=== PATIENT | male | born 1940 | race African-American/Black ===

== ENCOUNTER 2018-01-17 20:54 | Inpatient (IN) | payer MEDICARE ==
[~2018-01-17] VITALS: Ht 177.8 cm; Wt 71.7 kg
[2018-01-17] MEDS ORDERED: SUCCINYLCHOLINE CHLORIDE 200MG/10ML VIAL IV ONE (21:00)
[2018-01-17] MEDS ORDERED: ETOMIDATE 2MG/ML 10ML VIAL IV ONE (21:00)
[2018-01-17] MEDS ORDERED: SODIUM CHLORIDE 0.9% 1,000 ML IV ONE ×4 (21:10→22:15)
[2018-01-17 21:47] LABS: HEMATOCRIT. 37.8 % (42.0-52.0); HEMOGLOBIN. 12.5 g/dL (14.0-18.0); MEAN CORPUSCULAR HEMOGLOBIN 28.5 pg (28.0-32.0); MEAN CORPUSCULAR VOLUME 86.1 fL (80.0-94.0); MEAN PLATELET VOLUME 9.1 fl (7.4-10.4); PLATELET 238 x1000/uL (130-400); RED BLOOD CELL COUNT 4.39 mill/uL (4.7-6.1); RED CELL DISTRIBUTION WIDTH 15.1 % (11.6-14.6)
[2018-01-17 22:08] LABS: PROTHROMBIN TIME > 100.0 sec (9.4-11.6)
[2018-01-17 22:09] LABS: INR > 10.0
[2018-01-17 22:12] LABS: CHLORIDE 111 mEq/L (98-107)
[2018-01-17 22:15] LABS: PLATELET ESTIMATE NORMAL
[2018-01-17 22:29] LABS: BG BASE EXCESS -6.8 mmol/L (-2.0-2.0); BG CARBOXYHEMOGLOBIN 0.3 % (0.5-1.5); BG DEOXYHEMOGLOBIN 0.7 % (0.0-5.0); BG FRACTION INSPIRED OXYGEN 100; BG HCO3 ACT 17.5 mmol/L (22.0-26.0); BG METHEMOGLOBIN 0.4 % (0.0-1.5); BG OXYGEN SATURATION 99.3 % (92.0-98.5); BG OXYHEMOGLOBIN 98.6 % (94.0-97.0); BG PCO2 30.9 mmHg (35.0-45.0); BG PO2 507.2 mmHg (75.0-100.0); BG SAMPLE SITE LEFT RADIAL; BG TIDAL VOLUME(mL) 500 mL; BG TOTAL HEMOGLOBIN 10.8 g/dL (12.0-18.0); BG VENT MODE VENT - A/C; BG VENT RATE 12 set
[2018-01-17] MEDS ORDERED: VANCOMYCIN 1 G PREMIX 200 ML IV SCH (22:45)
[2018-01-17] MEDS ORDERED: PIPERACILLIN SODIUM/TAZOBACTAM 4.5 G in DEXT 5% WATER 100 ML IV SCH (22:45)
[2018-01-17] MEDS ORDERED: MIDAZOLAM HCL 50 MG in DEXTROSE 5% WATER 40 ML IV PRN (23:00)
[2018-01-17] MEDS ORDERED: ONDANSETRON HCL 4MG/2ML VIAL IV PRN (23:00)
[2018-01-17] MEDS ORDERED: IPRATROPIUM/ALBUTEROL 0.5-3(2.5)MG/3ML NEB INH PRN (23:00)
[2018-01-17] MEDS ORDERED: DIPHENHYDRAMINE 50MG/ML VIAL IV PRN (23:00)
[2018-01-17] MEDS ORDERED: GUAIFENESIN 200MG/10ML SUGAR FREE UDC PO PRN (23:00)
[2018-01-17] MEDS ORDERED: CLONIDINE 0.1MG TABLET PO PRN (23:00)
[2018-01-17] MEDS ORDERED: MAGNESIUM/ALUMINUM HYDROXIDE/SIMETHICONE 30ML UDC PO PRN (23:00)
[2018-01-17] MEDS ORDERED: ACETAMINOPHEN 325MG TABLET PO PRN (23:00)
[2018-01-17] MEDS ORDERED: NA PHOS,M-B/NA PHOS,DI-BA ENEMA 118ML PR PRN (23:00)
[2018-01-17] MEDS ORDERED: LORAZEPAM 2MG/ML CPJ IV PRN (23:00)
[2018-01-17] MEDS ORDERED: NOREPINEPHRINE 4 MG in DEXT 5% WATER 246 ML IV ONE ×2 (23:00→23:30)
[2018-01-17] MEDS ORDERED: PIPERACILLIN/TAZ 3.375G PREMIX 50 ML IV SCH (23:15)
[2018-01-17] MEDS ORDERED: PHYTONADIONE 5 MG in DEXTROSE 5% WATER 50 ML IV ONE (23:30)
[2018-01-18] VITALS (80 sets, daily range): BP systolic 84–116; BP diastolic 41–68
[2018-01-18 00:09] LABS: T4 FREE 1.27 ng/dL (0.76-1.46)
[2018-01-18 00:10] LABS: FOLIC ACID (FOLATE) SERUM 6.5 ng/mL (>5.38)
[2018-01-18] MEDS: DEXT 5%/0.45% NACL 1000ML 1,000 ML IV SCH ×5 (03:30→22:54)
[2018-01-18] MEDS: NOREPINEPHRINE 4 MG in DEXT 5% WATER 246 ML IV PRN ×3 (03:56→15:47)
[2018-01-18] MEDS ORDERED: PHYTONADIONE 10MG/ML AMP SUBCUT NR (04:00)
[2018-01-18] MEDS ORDERED: ALBUMIN HUMAN 25GM/500ML (5%) IV NR (04:00)
[2018-01-18] MEDS ORDERED: PHENYLEPHRINE 20 MG in DEXT 5% WATER 248 ML IV PRN (05:00)
[2018-01-18] MEDS ORDERED: PROPOFOL 10MG/ML 100ML 100 ML IV PRN (05:00)
[2018-01-18] MEDS ORDERED: PHENYLEPHRINE 20 MG in SODIUM CHLORIDE 0.9% 248 ML IV PRN (05:27)
[2018-01-18 05:38] LABS: BG BASE EXCESS -3.2 mmol/L (-2.0-2.0); BG CARBOXYHEMOGLOBIN 0.5 % (0.5-1.5); BG DEOXYHEMOGLOBIN 13.5 % (0.0-5.0); BG FRACTION INSPIRED OXYGEN 50; BG HCO3 ACT 21.8 mmol/L (22.0-26.0); BG METHEMOGLOBIN 0.2 % (0.0-1.5); BG OXYGEN SATURATION 86.4 % (92.0-98.5); BG OXYHEMOGLOBIN 85.8 % (94.0-97.0); BG PCO2 38.7 mmHg (35.0-45.0); BG PH 7.368 (7.350-7.450); BG PO2 62.3 mmHg (75.0-100.0); BG SAMPLE SITE RIGHT RADIAL; BG TIDAL VOLUME(mL) 500 mL; BG TOTAL HEMOGLOBIN 12.7 g/dL (12.0-18.0); BG VENT MODE VENT - A/C; BG VENT RATE 12 set
[2018-01-18] MEDS ORDERED: VANCOMYCIN 500 MG PREMIX 100 ML IV NR (06:00)
[2018-01-18 06:45] LABS: HEMATOCRIT. 33.2 % (42.0-52.0); HEMOGLOBIN. 10.7 g/dL (14.0-18.0); MEAN CORPUSCULAR HEMOGLOBIN 28.1 pg (28.0-32.0); MEAN CORPUSCULAR VOLUME 87.2 fL (80.0-94.0); MEAN PLATELET VOLUME 9.3 fl (7.4-10.4); PLATELET 216 x1000/uL (130-400); RED BLOOD CELL COUNT 3.81 mill/uL (4.7-6.1); RED CELL DISTRIBUTION WIDTH 15.1 % (11.6-14.6)
[2018-01-18 06:55] LABS: INR 2.9; PARTIAL THROMBOPLASTIN TIME 48.3 sec (23.4-31.0); PROTHROMBIN TIME 30.9 sec (9.4-11.6)
[2018-01-18 08:01] LABS: CREATINE KINASE MB FRACTION 22.8 ng/mL (0.5-3.6)
[2018-01-18] MEDS: IPRATROPIUM/ALBUTEROL 0.5-3(2.5)MG/3ML NEB HHN SCH ×4 (08:21→20:31)
[2018-01-18] MEDS: PANTOPRAZOLE SODIUM 40 MG/VIAL IV SCH (09:20)
[2018-01-18] MEDS: PIPERACILLIN/TAZ 2.25G PREMIX 50 ML IV SCH ×2 (09:21→17:57)
[2018-01-18] MEDS ORDERED: SODIUM CHLORIDE 0.9% 1,000 ML IV SCH (09:47)
[2018-01-18 09:50] LABS: PLATELET ESTIMATE NORMAL
[2018-01-18] MEDS ORDERED: SODIUM CHLORIDE 0.9% 1,000 ML IV ONE (10:15)
[2018-01-18] MEDS ORDERED: TRAZ-129 PO (11:52)
[2018-01-18] MEDS ORDERED: SIMV40TA5 PO (11:52)
[2018-01-18] MEDS ORDERED: CARB1TAB5 PO (11:52)
[2018-01-18] MEDS ORDERED: WARF6TAB22 PO (11:52)
[2018-01-18] MEDS ORDERED: TAMS0.4C31 PO (11:52)
[2018-01-18] MEDS ORDERED: DIATR MEGLU/DIATRIZOATE SOLN 30ML PO SCH (12:45)
[2018-01-18 13:03] LABS: AMMONIA 38 uMol/L (<32)
[2018-01-18 13:49] LABS: HEPATITIS B SURFACE ANTIGEN NEGATIVE
[2018-01-18 14:17] LABS: HEPATITIS B CORE AB IGM NEGATIVE
[2018-01-18 14:19] LABS: HEPATITIS A AB IGM NEGATIVE (NEGATIVE)
[2018-01-18 16:00] LABS: CREATINE KINASE MB FRACTION 12.7 ng/mL (0.5-3.6)
[2018-01-18] MEDS ORDERED: NA PHOS,M-B/NA PHOS,DI-BA ENEMA 118ML PR ONE (21:30)
[2018-01-19] VITALS (44 sets, daily range): BP systolic 93–143; BP diastolic 43–72
[2018-01-19] MEDS: IPRATROPIUM/ALBUTEROL 0.5-3(2.5)MG/3ML NEB HHN SCH ×6 (00:22→20:26)
[2018-01-19] MEDS: NOREPINEPHRINE 4 MG in DEXT 5% WATER 246 ML IV PRN (01:32)
[2018-01-19] MEDS: PIPERACILLIN/TAZ 2.25G PREMIX 50 ML IV SCH ×2 (01:57→09:40)
[2018-01-19 06:34] LABS: CHLORIDE 112 mEq/L (98-107)
[2018-01-19 06:36] LABS: HEMATOCRIT. 31.3 % (42.0-52.0); HEMOGLOBIN. 10.6 g/dL (14.0-18.0); MEAN PLATELET VOLUME 9.4 fl (7.4-10.4); PLATELET 196 x1000/uL (130-400); RED BLOOD CELL COUNT 3.64 mill/uL (4.7-6.1); RED CELL DISTRIBUTION WIDTH 14.9 % (11.6-14.6)
[2018-01-19] MEDS: DEXT 5%/0.45% NACL 1000ML 1,000 ML IV SCH ×2 (08:17→19:00)
[2018-01-19] MEDS: PANTOPRAZOLE SODIUM 40 MG/VIAL IV SCH (08:17)
[2018-01-19] MEDS: DOCUSATE SODIUM 100MG CAPSULE PO PRN (08:17)
[2018-01-19 08:18] LABS: BG BASE EXCESS 1.5 mmol/L (-2.0-2.0); BG CARBOXYHEMOGLOBIN 0.3 % (0.5-1.5); BG DEOXYHEMOGLOBIN 0.6 % (0.0-5.0); BG FRACTION INSPIRED OXYGEN 60; BG HCO3 ACT 25.1 mmol/L (22.0-26.0); BG METHEMOGLOBIN 0.1 % (0.0-1.5); BG OXYGEN SATURATION 99.4 % (92.0-98.5); BG PCO2 35.5 mmHg (35.0-45.0); BG PH 7.467 (7.350-7.450); BG PO2 238.6 mmHg (75.0-100.0); BG SAMPLE SITE RIGHT RADIAL; BG TIDAL VOLUME(mL) 550 mL; BG TOTAL HEMOGLOBIN 10.3 g/dL (12.0-18.0); BG VENT MODE VENT - A/C; BG VENT RATE 12 set
[2018-01-19] MEDS ORDERED: POTASSIUM CHLORIDE 20MEQ/PACKET PO SCH (08:45)
[2018-01-19] MEDS: LACTULOSE 20G/30ML UDC PO SCH ×3 (09:40→22:32)
[2018-01-19] MEDS ORDERED: POTASSIUM CHLORIDE INJ 40 MEQ in DEXT 5% WATER 250 ML IV SCH (10:00)
[2018-01-19] MEDS: METOCLOPRAMIDE HCL 10MG/2ML VIAL IV SCH ×3 (12:00→23:29)
[2018-01-19] MEDS: CARBIDOPA/LEVODOPA 25/100MG TABLET PO SCH ×2 (13:03→16:39)
[2018-01-19] MEDS: ENOXAPARIN 60MG/0.6ML SYR SUBCUT SCH ×2 (13:03→22:33)
[2018-01-19] MEDS ORDERED: VANCOMYCIN 1250MG in DEXTROSE 5% WATER 250ML IV SCH (14:00)
[2018-01-19 14:14] LABS: PLATELET ESTIMATE NORMAL
[2018-01-19] MEDS: PIPERACILLIN/TAZ 3.375G PREMIX 50 ML IV SCH ×2 (16:40→22:32)
[2018-01-19 19:04] LABS: T4 FREE 0.99 ng/dL (0.76-1.46)
[2018-01-19 20:38] LABS: AMMONIA 41 uMol/L (<32)
[2018-01-20] VITALS (25 sets, daily range): BP systolic 90–130; BP diastolic 46–71
[2018-01-20] MEDS: IPRATROPIUM/ALBUTEROL 0.5-3(2.5)MG/3ML NEB HHN SCH ×7 (00:03→23:47)
[2018-01-20] MEDS: PIPERACILLIN/TAZ 3.375G PREMIX 50 ML IV SCH ×4 (04:22→21:15)
[2018-01-20] MEDS: VANCOMYCIN 1250MG in DEXTROSE 5% WATER 250ML IV SCH ×2 (05:07→23:06)
[2018-01-20] MEDS: METOCLOPRAMIDE HCL 10MG/2ML VIAL IV SCH ×4 (05:09→23:06)
[2018-01-20] MEDS: LACTULOSE 20G/30ML UDC PO SCH ×3 (05:09→21:14)
[2018-01-20 05:52] LABS: HEMATOCRIT. 30.9 % (42.0-52.0); HEMOGLOBIN. 10.4 g/dL (14.0-18.0); MEAN PLATELET VOLUME 9.4 fl (7.4-10.4); PLATELET 159 x1000/uL (130-400); RED CELL DISTRIBUTION WIDTH 14.9 % (11.6-14.6)
[2018-01-20 05:59] LABS: INR 1.5; PROTHROMBIN TIME 15.9 sec (9.4-11.6)
[2018-01-20] MEDS: DEXT 5%/0.45% NACL 1000ML 1,000 ML IV SCH ×3 (06:00→23:07)
[2018-01-20 06:15] LABS: CHLORIDE 113 mEq/L (98-107)
[2018-01-20 07:24] LABS: CLARITY URINE CLEAR (CLEAR); COLOR URINE YELLOW (YELLOW); KETONES URINE NEGATIVE (NEGATIVE); LEUKOCYTE ESTERASE URINE 2+ (NEGATIVE); NITRITE URINE NEGATIVE (NEGATIVE); OCCULT BLOOD URINE 3+ (NEGATIVE); PH URINE 5.5 (4.5-8.0); PROTEIN URINE TRACE (NEGATIVE)
[2018-01-20 08:32] LABS: PHOSPHORUS 1.8 mg/dL (2.5-4.9)
[2018-01-20] MEDS: PANTOPRAZOLE SODIUM 40 MG/VIAL IV SCH (08:42)
[2018-01-20] MEDS: CARBIDOPA/LEVODOPA 25/100MG TABLET PO SCH ×3 (08:42→17:00)
[2018-01-20] MEDS ORDERED: POTASSIUM PHOS,M-BASIC-D-BASIC 15 MMOL in DEXT 5% WATER 245 ML IV SCH (11:00)
[2018-01-20 11:27] LABS: PLATELET ESTIMATE NORMAL
[2018-01-20] MEDS: ENOXAPARIN 60MG/0.6ML SYR SUBCUT SCH ×2 (11:55→23:06)
[2018-01-20 12:10] LABS: BG CARBOXYHEMOGLOBIN 0.3 % (0.5-1.5); BG DEOXYHEMOGLOBIN 0.8 % (0.0-5.0); BG FRACTION INSPIRED OXYGEN 50; BG HCO3 ACT 26.1 mmol/L (22.0-26.0); BG METHEMOGLOBIN 0.2 % (0.0-1.5); BG OXYGEN SATURATION 99.2 % (92.0-98.5); BG OXYHEMOGLOBIN 98.7 % (94.0-97.0); BG PCO2 34.7 mmHg (35.0-45.0); BG PH 7.495 (7.350-7.450); BG PO2 283.1 mmHg (75.0-100.0); BG PRESSURE SUPPORT 8; BG SAMPLE SITE RIGHT RADIAL; BG VENT MODE VENT - CPAP
[2018-01-20] MEDS ORDERED: WARFARIN SODIUM 2.5MG TABLET PO NR (18:00)
[2018-01-21] VITALS (24 sets, daily range): BP systolic 103–126; BP diastolic 52–64
[2018-01-21] MEDS: IPRATROPIUM/ALBUTEROL 0.5-3(2.5)MG/3ML NEB HHN SCH ×5 (03:21→21:10)
[2018-01-21] MEDS: PIPERACILLIN/TAZ 3.375G PREMIX 50 ML IV SCH ×4 (04:24→21:37)
[2018-01-21] MEDS: LACTULOSE 20G/30ML UDC PO SCH ×3 (05:29→21:34)
[2018-01-21] MEDS: METOCLOPRAMIDE HCL 10MG/2ML VIAL IV SCH ×4 (05:29→23:48)
[2018-01-21 06:19] LABS: HEMATOCRIT. 30.7 % (42.0-52.0); HEMOGLOBIN. 10.3 g/dL (14.0-18.0); MEAN CORPUSCULAR HEMOGLOBIN 28.6 pg (28.0-32.0); MEAN CORPUSCULAR VOLUME 85.5 fL (80.0-94.0); MEAN PLATELET VOLUME 9.3 fl (7.4-10.4); PLATELET 153 x1000/uL (130-400); RED BLOOD CELL COUNT 3.59 mill/uL (4.7-6.1); RED CELL DISTRIBUTION WIDTH 14.9 % (11.6-14.6)
[2018-01-21 06:21] LABS: CHLORIDE 112 mEq/L (98-107)
[2018-01-21 06:37] LABS: AMMONIA 52 uMol/L (<32); PHOSPHORUS 1.4 mg/dL (2.5-4.9)
[2018-01-21] MEDS: CARBIDOPA/LEVODOPA 25/100MG TABLET PO SCH ×4 (09:24→21:36)
[2018-01-21] MEDS: PANTOPRAZOLE SODIUM 40 MG/VIAL IV SCH (09:24)
[2018-01-21] MEDS: DEXT 5%/0.45% NACL KCL 20MEQ/L 1,000 ML IV SCH ×2 (09:58→16:53)
[2018-01-21] MEDS ORDERED: POTASSIUM PHOS,M-BASIC-D-BASIC 20 MMOL in DEXT 5% WATER 243.3333 ML IV SCH (10:00)
[2018-01-21 10:02] LABS: INR 1.5; PROTHROMBIN TIME 16.2 sec (9.4-11.6)
[2018-01-21] MEDS: CYANOCOBALAMIN 1000MCG TABLET PO SCH (10:46)
[2018-01-21] MEDS: ENOXAPARIN 60MG/0.6ML SYR SUBCUT SCH ×2 (11:40→23:48)
[2018-01-21] MEDS ORDERED: WARFARIN SODIUM 2.5MG TABLET PO SCH (11:45)
[2018-01-21] MEDS: VANCOMYCIN 1 G PREMIX 200 ML IV SCH ×2 (12:54→21:37)
[2018-01-21 13:10] LABS: PLATELET ESTIMATE NORMAL
[2018-01-21] MEDS: ACETYLCYSTEINE 100MG/ML 10% VIAL 4ML INH SCH (17:32)
[2018-01-21] MEDS: METOPROLOL TARTRATE 25MG TABLET PO SCH (21:36)
[2018-01-22] VITALS (29 sets, daily range): BP systolic 103–138; BP diastolic 51–67
[2018-01-22] MEDS: ACETYLCYSTEINE 100MG/ML 10% VIAL 4ML INH SCH ×3 (00:46→16:00)
[2018-01-22] MEDS: IPRATROPIUM/ALBUTEROL 0.5-3(2.5)MG/3ML NEB HHN SCH ×6 (00:47→19:48)
[2018-01-22] MEDS: PIPERACILLIN/TAZ 3.375G PREMIX 50 ML IV SCH ×4 (05:37→21:19)
[2018-01-22] MEDS: LACTULOSE 20G/30ML UDC PO SCH ×3 (05:37→21:19)
[2018-01-22] MEDS: DEXT 5%/0.45% NACL KCL 20MEQ/L 1,000 ML IV SCH ×4 (05:37→21:18)
[2018-01-22] MEDS: METOCLOPRAMIDE HCL 10MG/2ML VIAL IV SCH ×3 (05:37→17:08)
[2018-01-22 05:42] LABS: INR 1.7; PROTHROMBIN TIME 17.3 sec (9.4-11.6)
[2018-01-22 08:21] LABS: HEMATOCRIT 31.8 % (42.0-52.0); HEMOGLOBIN 10.3 g/dL (14.0-18.0); MEAN CORPUSCULAR HEMOGLOBIN 28.5 pg (28.0-32.0); MEAN CORPUSCULAR VOLUME 88.1 fL (80.0-94.0); PLATELET 153 x1000/uL (130-400); RED BLOOD CELL COUNT 3.61 mill/uL (4.7-6.1); RED CELL DISTRIBUTION WIDTH 15.3 % (11.6-14.6)
[2018-01-22] MEDS: VANCOMYCIN 1 G PREMIX 200 ML IV SCH (08:30)
[2018-01-22] MEDS: CYANOCOBALAMIN 1000MCG TABLET PO SCH (08:30)
[2018-01-22] MEDS: PANTOPRAZOLE SODIUM 40 MG/VIAL IV SCH (08:30)
[2018-01-22] MEDS: CARBIDOPA/LEVODOPA 25/100MG TABLET PO SCH ×4 (08:31→21:19)
[2018-01-22] MEDS: METOPROLOL TARTRATE 25MG TABLET PO SCH ×2 (08:33→21:18)
[2018-01-22 09:32] LABS: CHLORIDE 110 mEq/L (98-107)
[2018-01-22 09:38] LABS: PHOSPHORUS 1.4 mg/dL (2.5-4.9)
[2018-01-22 10:56] LABS: AMMONIA 36 uMol/L (<32)
[2018-01-22] MEDS: ENOXAPARIN 60MG/0.6ML SYR SUBCUT SCH (11:11)
[2018-01-22] MEDS ORDERED: POTASSIUM PHOS,M-BASIC-D-BASIC 30 MMOL in SODIUM CHLORIDE 0.9% 500 ML IV NR (13:00)
[2018-01-22] MEDS ORDERED: WARFARIN SODIUM 2.5MG TABLET PO SCH (18:00)
[2018-01-23] VITALS (29 sets, daily range): BP systolic 101–139; BP diastolic 48–72
[2018-01-23] MEDS: ENOXAPARIN 60MG/0.6ML SYR SUBCUT SCH ×3 (00:27→23:15)
[2018-01-23] MEDS: METOCLOPRAMIDE HCL 10MG/2ML VIAL IV SCH ×4 (00:27→18:45)
[2018-01-23] MEDS: DEXT 5%/0.45% NACL KCL 20MEQ/L 1,000 ML IV SCH ×2 (00:29→09:28)
[2018-01-23] MEDS: IPRATROPIUM/ALBUTEROL 0.5-3(2.5)MG/3ML NEB HHN SCH ×5 (05:11→20:04)
[2018-01-23] MEDS: LACTULOSE 20G/30ML UDC PO SCH (05:27)
[2018-01-23] MEDS: PIPERACILLIN/TAZ 3.375G PREMIX 50 ML IV SCH ×4 (05:28→22:00)
[2018-01-23 06:03] LABS: BASOPHILS % 0.3 % (0.0-2.0); EOSINOPHILS % 2.6 % (0.0-5.0); HEMOGLOBIN. 9.7 g/dL (14.0-18.0); LYMPHOCYTES % 10.1 % (20.0-50.0); MEAN CORPUSCULAR HEMOGLOBIN 28.9 pg (28.0-32.0); MEAN CORPUSCULAR VOLUME 86.1 fL (80.0-94.0); MEAN PLATELET VOLUME 9.6 fl (7.4-10.4); MONOCYTES % 4.6 % (2.0-8.0); NEUTROPHILS % 82.4 % (40.0-76.0); PLATELET 189 x1000/uL (130-400); RED BLOOD CELL COUNT 3.37 mill/uL (4.7-6.1); RED CELL DISTRIBUTION WIDTH 14.8 % (11.6-14.6)
[2018-01-23 06:07] LABS: INR 1.7; PARTIAL THROMBOPLASTIN TIME 40.4 sec (23.4-31.0); PROTHROMBIN TIME 17.4 sec (9.4-11.6)
[2018-01-23 06:29] LABS: CHLORIDE 110 mEq/L (98-107)
[2018-01-23 06:37] LABS: AMMONIA 32 uMol/L (<32)
[2018-01-23 06:52] LABS: PREALBUMIN 5.2 mg/dL (20.0-40.0)
[2018-01-23] MEDS: CYANOCOBALAMIN 1000MCG TABLET PO SCH (08:33)
[2018-01-23] MEDS: PANTOPRAZOLE SODIUM 40 MG/VIAL IV SCH (08:33)
[2018-01-23] MEDS: CARBIDOPA/LEVODOPA 25/100MG TABLET PO SCH ×4 (08:33→22:01)
[2018-01-23] MEDS: METOPROLOL TARTRATE 25MG TABLET PO SCH ×2 (08:33→22:01)
[2018-01-23] MEDS: ACETYLCYSTEINE 100MG/ML 10% VIAL 4ML INH SCH ×2 (09:05→16:54)
[2018-01-23] MEDS ORDERED: PHYTONADIONE 5 MG/5ML ORAL SYRINGE PO NR (12:00)
[2018-01-23 12:28] LABS: PHOSPHORUS 1.3 mg/dL (2.5-4.9)
[2018-01-23] MEDS ORDERED: POTASSIUM PHOS,M-BASIC-D-BASIC 15 MMOL in DEXT 5% WATER 245 ML IV NR (16:00)
[2018-01-23] MEDS: NYSTATIN POWDER 15GM TOP SCH (22:02)
[2018-01-24] VITALS: BP 105/75
[2018-01-24] MEDS: ACETYLCYSTEINE 100MG/ML 10% VIAL 4ML INH SCH ×4 (00:05→23:31)
[2018-01-24] MEDS: IPRATROPIUM/ALBUTEROL 0.5-3(2.5)MG/3ML NEB HHN SCH ×7 (00:05→23:32)
[2018-01-24] MEDS: METOCLOPRAMIDE HCL 10MG/2ML VIAL IV SCH ×5 (02:11→23:17)
[2018-01-24 04:00] VITALS: BP 106/38
[2018-01-24] MEDS: PIPERACILLIN/TAZ 3.375G PREMIX 50 ML IV SCH ×4 (04:44→22:14)
[2018-01-24 07:16] LABS: INR 1.2; PARTIAL THROMBOPLASTIN TIME 30.4 sec (23.4-31.0); PROTHROMBIN TIME 12.5 sec (9.4-11.6)
[2018-01-24 08:00] VITALS: BP 101/45
[2018-01-24] MEDS: METOPROLOL TARTRATE 25MG TABLET PO SCH ×2 (08:12→21:55)
[2018-01-24 08:24] LABS: AMMONIA 65 uMol/L (<32)
[2018-01-24] MEDS: NYSTATIN POWDER 15GM TOP SCH ×2 (08:31→22:13)
[2018-01-24] MEDS: CARBIDOPA/LEVODOPA 25/100MG TABLET PO SCH ×4 (08:31→21:56)
[2018-01-24] MEDS: CYANOCOBALAMIN 1000MCG TABLET PO SCH (08:31)
[2018-01-24] MEDS: LACTULOSE 20G/30ML UDC PO SCH (08:31)
[2018-01-24] MEDS: PANTOPRAZOLE SODIUM 40 MG/VIAL IV SCH (08:31)
[2018-01-24] MEDS: ENOXAPARIN 60MG/0.6ML SYR SUBCUT SCH (11:22)
[2018-01-24 12:00] VITALS: BP 105/48
[2018-01-24 16:00] VITALS: BP 108/46
[2018-01-24 20:00] VITALS: BP 115/47
[2018-01-25] VITALS: BP 102/34
[2018-01-25] MEDS: IPRATROPIUM/ALBUTEROL 0.5-3(2.5)MG/3ML NEB HHN SCH ×5 (03:37→20:18)
[2018-01-25 04:00] VITALS: BP 103/35
[2018-01-25] MEDS: METOCLOPRAMIDE HCL 10MG/2ML VIAL IV SCH ×3 (05:28→17:10)
[2018-01-25 06:50] LABS: INR 1.1; PARTIAL THROMBOPLASTIN TIME 28.6 sec (23.4-31.0); PROTHROMBIN TIME 11.8 sec (9.4-11.6)
[2018-01-25] MEDS: CYANOCOBALAMIN 1000MCG TABLET PO SCH (07:37)
[2018-01-25 08:00] VITALS: BP 103/46
[2018-01-25] MEDS: METOPROLOL TARTRATE 25MG TABLET PO SCH ×2 (08:02→20:53)
[2018-01-25] MEDS: LACTULOSE 20G/30ML UDC PO SCH (08:02)
[2018-01-25] MEDS: CARBIDOPA/LEVODOPA 25/100MG TABLET PO SCH ×4 (08:02→20:52)
[2018-01-25] MEDS: NYSTATIN POWDER 15GM TOP SCH ×2 (08:24→20:53)
[2018-01-25] MEDS: PANTOPRAZOLE SODIUM 40 MG/VIAL IV SCH (08:37)
[2018-01-25] MEDS: ACETYLCYSTEINE 100MG/ML 10% VIAL 4ML INH SCH ×2 (08:44→16:27)
[2018-01-25] MEDS ORDERED: CEFAZOLIN 1000MG PREMIX 50 ML IV NR (10:00)
[2018-01-25 11:15] VITALS: BP 106/39
[2018-01-25] MEDS ORDERED: FENTANYL CITRATE/PF 50MCG/ML 2ML VIAL ONE (11:25)
[2018-01-25] MEDS ORDERED: MIDAZOLAM HCL 5 MG/5 ML VIAL ONE (11:26)
[2018-01-25] MEDS ORDERED: SODIUM CHLORIDE 0.9% 10ML VIAL ONE (14:24)
[2018-01-25] MEDS ORDERED: SIMETHICONE 40 MG/0.6 ML 30ML ONE (14:24)
[2018-01-25 16:00] VITALS: BP 120/53
[2018-01-25] MEDS: CEFTRIAXONE 1 G PREMIX 50 ML IV SCH (17:57)
[2018-01-25 20:00] VITALS: BP 105/45
[2018-01-25] MEDS: METRONIDAZOLE 500 MG PREMIX 100 ML IV SCH (20:53)
[2018-01-26] VITALS: BP 111/51
[2018-01-26] MEDS: ACETYLCYSTEINE 100MG/ML 10% VIAL 4ML INH SCH ×3 (00:26→19:45)
[2018-01-26] MEDS: IPRATROPIUM/ALBUTEROL 0.5-3(2.5)MG/3ML NEB HHN SCH ×6 (00:26→19:45)
[2018-01-26] MEDS: METOCLOPRAMIDE HCL 10MG/2ML VIAL IV SCH ×5 (02:19→23:43)
[2018-01-26 04:00] VITALS: BP_SYST 107; BP_SYST 111; BP_DIAS 51; BP_DIAS 56
[2018-01-26 08:00] VITALS: BP 141/45
[2018-01-26] MEDS: CARBIDOPA/LEVODOPA 25/100MG TABLET PO SCH ×4 (08:27→21:36)
[2018-01-26] MEDS: CYANOCOBALAMIN 1000MCG TABLET PO SCH (08:27)
[2018-01-26] MEDS: PANTOPRAZOLE SODIUM 40 MG/VIAL IV SCH (08:28)
[2018-01-26] MEDS: METOPROLOL TARTRATE 25MG TABLET PO SCH ×2 (08:29→21:00)
[2018-01-26] MEDS: LACTULOSE 20G/30ML UDC PO SCH (08:29)
[2018-01-26] MEDS: NYSTATIN POWDER 15GM TOP SCH ×2 (08:29→21:49)
[2018-01-26] MEDS: METRONIDAZOLE 500 MG PREMIX 100 ML IV SCH ×2 (08:30→21:36)
[2018-01-26 12:00] VITALS: BP 110/36
[2018-01-26] MEDS: ENOXAPARIN 60MG/0.6ML SYR SUBCUT SCH ×2 (12:12→21:59)
[2018-01-26 16:00] VITALS: BP 99/41
[2018-01-26] MEDS: WARFARIN SODIUM 5MG TABLET PO SCH (17:46)
[2018-01-26] MEDS: CEFTRIAXONE 1 G PREMIX 50 ML IV SCH (17:47)
[2018-01-26 20:00] VITALS: BP 101/39
[2018-01-27] VITALS: BP 96/39
[2018-01-27] MEDS: IPRATROPIUM/ALBUTEROL 0.5-3(2.5)MG/3ML NEB HHN SCH ×6 (01:14→21:06)
[2018-01-27 04:00] VITALS: BP 95/41
[2018-01-27] MEDS: ACETYLCYSTEINE 100MG/ML 10% VIAL 4ML INH SCH ×2 (04:04→07:40)
[2018-01-27] MEDS: METOCLOPRAMIDE HCL 10MG/2ML VIAL IV SCH ×3 (05:33→17:18)
[2018-01-27 06:05] LABS: INR 1.2; PROTHROMBIN TIME 12.3 sec (9.4-11.6)
[2018-01-27 08:00] VITALS: BP 103/43
[2018-01-27] MEDS: METOPROLOL TARTRATE 25MG TABLET PO SCH ×2 (09:00→20:57)
[2018-01-27] MEDS: ENOXAPARIN 60MG/0.6ML SYR SUBCUT SCH ×2 (09:51→20:40)
[2018-01-27] MEDS: PANTOPRAZOLE SODIUM 40 MG/VIAL IV SCH (09:51)
[2018-01-27] MEDS: METRONIDAZOLE 500 MG PREMIX 100 ML IV SCH ×2 (09:52→20:38)
[2018-01-27] MEDS: CARBIDOPA/LEVODOPA 25/100MG TABLET PO SCH ×4 (09:52→20:39)
[2018-01-27] MEDS: CYANOCOBALAMIN 1000MCG TABLET PO SCH (09:52)
[2018-01-27] MEDS: LACTULOSE 20G/30ML UDC PO SCH (09:52)
[2018-01-27] MEDS: NYSTATIN POWDER 15GM TOP SCH ×2 (09:53→20:39)
[2018-01-27 12:00] VITALS: BP 119/61
[2018-01-27 16:00] VITALS: BP 104/50
[2018-01-27] MEDS: WARFARIN SODIUM 5MG TABLET PO SCH (17:18)
[2018-01-27] MEDS: CEFTRIAXONE 1 G PREMIX 50 ML IV SCH (17:18)
[2018-01-27 20:00] VITALS: BP 107/42
[2018-01-28] VITALS (7 sets, daily range): BP systolic 95–118; BP diastolic 43–51
[2018-01-28] MEDS: IPRATROPIUM/ALBUTEROL 0.5-3(2.5)MG/3ML NEB HHN SCH ×6 (00:50→20:31)
[2018-01-28] MEDS: METOCLOPRAMIDE HCL 10MG/2ML VIAL IV SCH ×4 (01:04→18:41)
[2018-01-28 07:33] LABS: INR 1.2; PROTHROMBIN TIME 12.3 sec (9.4-11.6)
[2018-01-28] MEDS: METOPROLOL TARTRATE 25MG TABLET PO SCH ×2 (09:00→20:05)
[2018-01-28] MEDS: LACTULOSE 20G/30ML UDC PO SCH (09:49)
[2018-01-28] MEDS: CARBIDOPA/LEVODOPA 25/100MG TABLET PO SCH ×4 (09:49→20:07)
[2018-01-28] MEDS: CYANOCOBALAMIN 1000MCG TABLET PO SCH (09:49)
[2018-01-28] MEDS: PANTOPRAZOLE SODIUM 40 MG/VIAL IV SCH (09:50)
[2018-01-28] MEDS: METRONIDAZOLE 500 MG PREMIX 100 ML IV SCH ×2 (09:50→20:07)
[2018-01-28] MEDS: ENOXAPARIN 60MG/0.6ML SYR SUBCUT SCH ×2 (09:51→20:07)
[2018-01-28] MEDS: NYSTATIN POWDER 15GM TOP SCH ×2 (10:07→20:08)
[2018-01-28] MEDS ORDERED: WARFARIN SODIUM 3MG TABLET PO SCH (18:00)
[2018-01-28] MEDS: CEFTRIAXONE 1 G PREMIX 50 ML IV SCH (18:41)
[2018-01-29] MEDS: IPRATROPIUM/ALBUTEROL 0.5-3(2.5)MG/3ML NEB HHN SCH ×6 (00:27→20:51)
[2018-01-29] MEDS: METOCLOPRAMIDE HCL 10MG/2ML VIAL IV SCH ×4 (01:08→18:35)
[2018-01-29 04:00] VITALS: BP 110/50
[2018-01-29 07:37] LABS: HEMATOCRIT 29.5 % (42.0-52.0); HEMOGLOBIN 9.7 g/dL (14.0-18.0); MEAN CORPUSCULAR HEMOGLOBIN 28.1 pg (28.0-32.0); MEAN CORPUSCULAR VOLUME 85.6 fL (80.0-94.0); PLATELET 394 x1000/uL (130-400); RED BLOOD CELL COUNT 3.45 mill/uL (4.7-6.1); RED CELL DISTRIBUTION WIDTH 14.9 % (11.6-14.6)
[2018-01-29 07:39] LABS: INR 1.2; PROTHROMBIN TIME 12.7 sec (9.4-11.6)
[2018-01-29 08:00] VITALS: BP 98/46
[2018-01-29 08:05] LABS: CHLORIDE 110 mEq/L (98-107)
[2018-01-29] MEDS: PANTOPRAZOLE SODIUM 40 MG/VIAL IV SCH (10:05)
[2018-01-29] MEDS: METOPROLOL TARTRATE 25MG TABLET PO SCH ×2 (10:06→21:00)
[2018-01-29] MEDS: CARBIDOPA/LEVODOPA 25/100MG TABLET PO SCH ×4 (10:06→21:22)
[2018-01-29] MEDS: ENOXAPARIN 60MG/0.6ML SYR SUBCUT SCH ×2 (10:06→21:23)
[2018-01-29] MEDS: LACTULOSE 20G/30ML UDC PO SCH (10:07)
[2018-01-29] MEDS: METRONIDAZOLE 500 MG PREMIX 100 ML IV SCH ×2 (10:23→21:22)
[2018-01-29] MEDS: CYANOCOBALAMIN 1000MCG TABLET PO SCH (10:23)
[2018-01-29 12:00] VITALS: BP 102/51
[2018-01-29] MEDS: NYSTATIN POWDER 15GM TOP SCH ×2 (14:45→21:23)
[2018-01-29 16:36] VITALS: BP 103/45
[2018-01-29] MEDS ORDERED: WARFARIN SODIUM 5MG TABLET PO NR (18:00)
[2018-01-29] MEDS: CEFTRIAXONE 1 G PREMIX 50 ML IV SCH (18:32)
[2018-01-29 20:00] VITALS: BP 96/43
[2018-01-30] VITALS: BP 100/46
[2018-01-30] MEDS: IPRATROPIUM/ALBUTEROL 0.5-3(2.5)MG/3ML NEB HHN SCH ×6 (00:12→20:07)
[2018-01-30] MEDS: METOCLOPRAMIDE HCL 10MG/2ML VIAL IV SCH ×5 (00:27→23:39)
[2018-01-30 04:00] VITALS: BP 103/45
[2018-01-30 06:35] LABS: INR 1.3; PROTHROMBIN TIME 13.5 sec (9.4-11.6)
[2018-01-30] MEDS: CYANOCOBALAMIN 1000MCG TABLET PO SCH (07:50)
[2018-01-30 08:00] VITALS: BP 111/49
[2018-01-30] MEDS: CARBIDOPA/LEVODOPA 25/100MG TABLET PO SCH ×4 (08:29→20:37)
[2018-01-30] MEDS: PANTOPRAZOLE SODIUM 40 MG/VIAL IV SCH (08:29)
[2018-01-30] MEDS: METRONIDAZOLE 500 MG PREMIX 100 ML IV SCH ×2 (08:29→20:41)
[2018-01-30] MEDS: METOPROLOL TARTRATE 25MG TABLET PO SCH ×2 (08:29→20:38)
[2018-01-30] MEDS: ENOXAPARIN 60MG/0.6ML SYR SUBCUT SCH ×2 (08:30→20:37)
[2018-01-30] MEDS: DOCUSATE SODIUM 100MG CAPSULE PO PRN (08:30)
[2018-01-30] MEDS: LACTULOSE 20G/30ML UDC PO SCH (08:35)
[2018-01-30] MEDS: NYSTATIN POWDER 15GM TOP SCH ×2 (08:36→20:50)
[2018-01-30 12:00] VITALS: BP 98/46
[2018-01-30 16:00] VITALS: BP 99/45
[2018-01-30] MEDS ORDERED: WARFARIN SODIUM 7.5MG TABLET PO NR (18:00)
[2018-01-30] MEDS: CEFTRIAXONE 1 G PREMIX 50 ML IV SCH (18:58)
[2018-01-30 20:00] VITALS: BP 113/50
[2018-01-31] VITALS: BP 106/45
[2018-01-31] MEDS: IPRATROPIUM/ALBUTEROL 0.5-3(2.5)MG/3ML NEB HHN SCH ×5 (00:14→20:55)
[2018-01-31 04:00] VITALS: BP 110/46
[2018-01-31] MEDS: METOCLOPRAMIDE HCL 10MG/2ML VIAL IV SCH ×3 (06:20→17:59)
[2018-01-31 06:47] LABS: INR 1.5; PROTHROMBIN TIME 15.4 sec (9.4-11.6)
[2018-01-31 08:00] VITALS: BP 107/47
[2018-01-31] MEDS: METOPROLOL TARTRATE 25MG TABLET PO SCH ×2 (09:00→20:41)
[2018-01-31] MEDS: PANTOPRAZOLE SODIUM 40 MG/VIAL IV SCH (09:25)
[2018-01-31] MEDS: CYANOCOBALAMIN 1000MCG TABLET PO SCH (09:27)
[2018-01-31] MEDS: CARBIDOPA/LEVODOPA 25/100MG TABLET PO SCH ×4 (09:27→20:40)
[2018-01-31] MEDS: METRONIDAZOLE 500 MG PREMIX 100 ML IV SCH ×2 (09:28→20:40)
[2018-01-31] MEDS: ENOXAPARIN 60MG/0.6ML SYR SUBCUT SCH ×2 (09:29→20:41)
[2018-01-31] MEDS: LACTULOSE 20G/30ML UDC PO SCH (09:34)
[2018-01-31] MEDS: NYSTATIN POWDER 15GM TOP SCH ×2 (09:43→20:41)
[2018-01-31 12:00] VITALS: BP_SYST 112; BP_SYST 128; BP_DIAS 63; BP_DIAS 78
[2018-01-31 16:00] VITALS: BP 99/46
[2018-01-31] MEDS: CEFTRIAXONE 1 G PREMIX 50 ML IV SCH (17:59)
[2018-01-31] MEDS ORDERED: WARFARIN SODIUM 5MG TABLET PO SCH (18:00)
[2018-01-31] MEDS ORDERED: WARFARIN SODIUM 7.5MG TABLET PO SCH (18:00)
[2018-01-31 20:00] VITALS: BP 101/52
[2018-02-01] VITALS: BP 102/46
[2018-02-01] MEDS: IPRATROPIUM/ALBUTEROL 0.5-3(2.5)MG/3ML NEB HHN SCH ×6 (01:12→20:41)
[2018-02-01] MEDS: METOCLOPRAMIDE HCL 10MG/2ML VIAL IV SCH ×4 (02:23→17:07)
[2018-02-01 04:00] VITALS: BP 107/54
[2018-02-01 07:06] LABS: INR 1.7; PROTHROMBIN TIME 17.2 sec (9.4-11.6)
[2018-02-01 08:00] VITALS: BP 114/59
[2018-02-01] MEDS: METOPROLOL TARTRATE 25MG TABLET PO SCH ×2 (09:00→20:23)
[2018-02-01] MEDS: CYANOCOBALAMIN 1000MCG TABLET PO SCH (09:30)
[2018-02-01] MEDS: METRONIDAZOLE 500 MG PREMIX 100 ML IV SCH ×2 (09:31→20:19)
[2018-02-01] MEDS: LACTULOSE 20G/30ML UDC PO SCH (09:31)
[2018-02-01] MEDS: CARBIDOPA/LEVODOPA 25/100MG TABLET PO SCH ×4 (09:31→20:19)
[2018-02-01] MEDS: PANTOPRAZOLE SODIUM 40 MG/VIAL IV SCH (09:31)
[2018-02-01] MEDS: ENOXAPARIN 60MG/0.6ML SYR SUBCUT SCH ×2 (09:31→20:19)
[2018-02-01] MEDS: NYSTATIN POWDER 15GM TOP SCH ×2 (09:32→20:29)
[2018-02-01 12:00] VITALS: BP 113/55
[2018-02-01 16:00] VITALS: BP 110/50
[2018-02-01] MEDS: WARFARIN SODIUM 3MG TABLET PO SCH (17:07)
[2018-02-01] MEDS: CEFTRIAXONE 1 G PREMIX 50 ML IV SCH (17:07)
[2018-02-01] MEDS ORDERED: WARFARIN SODIUM 5MG TABLET PO SCH (18:00)
[2018-02-01 20:00] VITALS: BP 111/47
[2018-02-02] VITALS: BP 135/57
[2018-02-02] MEDS: IPRATROPIUM/ALBUTEROL 0.5-3(2.5)MG/3ML NEB HHN SCH ×6 (00:33→20:15)
[2018-02-02] MEDS: METOCLOPRAMIDE HCL 10MG/2ML VIAL IV SCH ×4 (00:53→17:41)
[2018-02-02 04:00] VITALS: BP 139/55
[2018-02-02 06:44] LABS: INR 1.9; PROTHROMBIN TIME 19.4 sec (9.4-11.6)
[2018-02-02 08:00] VITALS: BP 102/51
[2018-02-02] MEDS: PANTOPRAZOLE SODIUM 40 MG/VIAL IV SCH (08:54)
[2018-02-02] MEDS: LACTULOSE 20G/30ML UDC PO SCH (08:54)
[2018-02-02] MEDS: CYANOCOBALAMIN 1000MCG TABLET PO SCH (08:55)
[2018-02-02] MEDS: ENOXAPARIN 60MG/0.6ML SYR SUBCUT SCH ×2 (08:55→22:00)
[2018-02-02] MEDS: CARBIDOPA/LEVODOPA 25/100MG TABLET PO SCH ×4 (08:57→21:54)
[2018-02-02] MEDS: METOPROLOL TARTRATE 25MG TABLET PO SCH ×2 (08:57→21:56)
[2018-02-02] MEDS: NYSTATIN POWDER 15GM TOP SCH ×2 (08:58→21:57)
[2018-02-02 12:00] VITALS: BP 126/67
[2018-02-02 16:00] VITALS: BP 110/58
[2018-02-02] MEDS: WARFARIN SODIUM 3MG TABLET PO SCH (17:42)
[2018-02-02 20:00] VITALS: BP 127/64
[2018-02-03] VITALS: BP 125/57
[2018-02-03] MEDS: IPRATROPIUM/ALBUTEROL 0.5-3(2.5)MG/3ML NEB HHN SCH ×6 (00:04→20:02)
[2018-02-03 04:00] VITALS: BP 144/68
[2018-02-03 05:58] LABS: PROTHROMBIN TIME 21.1 sec (9.4-11.6)
[2018-02-03 08:00] VITALS: BP 109/50
[2018-02-03] MEDS: CYANOCOBALAMIN 1000MCG TABLET PO SCH (08:41)
[2018-02-03] MEDS: PANTOPRAZOLE SODIUM 40 MG/VIAL IV SCH (08:41)
[2018-02-03] MEDS: LACTULOSE 20G/30ML UDC PO SCH (08:41)
[2018-02-03] MEDS: CARBIDOPA/LEVODOPA 25/100MG TABLET PO SCH ×4 (08:42→21:32)
[2018-02-03] MEDS: METOPROLOL TARTRATE 25MG TABLET PO SCH ×2 (08:44→21:33)
[2018-02-03] MEDS: ENOXAPARIN 60MG/0.6ML SYR SUBCUT SCH ×2 (08:44→21:32)
[2018-02-03 11:58] VITALS: BP 109/52
[2018-02-03] MEDS: NYSTATIN POWDER 15GM TOP SCH (12:33)
[2018-02-03 16:00] VITALS: BP 136/28
[2018-02-03] MEDS: WARFARIN SODIUM 3MG TABLET PO SCH (17:43)
[2018-02-03] MEDS: METOCLOPRAMIDE HCL 10MG/2ML VIAL IV SCH ×3 (19:17→23:57)
[2018-02-04] VITALS: BP 139/49
[2018-02-04] MEDS: IPRATROPIUM/ALBUTEROL 0.5-3(2.5)MG/3ML NEB HHN SCH ×5 (01:26→16:50)
[2018-02-04 04:00] VITALS: BP 132/58
[2018-02-04] MEDS: METOCLOPRAMIDE HCL 10MG/2ML VIAL IV SCH ×2 (05:18→12:57)
[2018-02-04 07:04] LABS: INR 1.9
[2018-02-04 08:00] VITALS: BP_SYST 104; BP_SYST 107; BP_DIAS 48; BP_DIAS 51
[2018-02-04] MEDS: METOPROLOL TARTRATE 25MG TABLET PO SCH (09:00)
[2018-02-04] MEDS: CYANOCOBALAMIN 1000MCG TABLET PO SCH (09:53)
[2018-02-04] MEDS: LACTULOSE 20G/30ML UDC PO SCH (09:53)
[2018-02-04] MEDS: CARBIDOPA/LEVODOPA 25/100MG TABLET PO SCH ×2 (09:53→17:48)
[2018-02-04] MEDS: PANTOPRAZOLE SODIUM 40 MG/VIAL IV SCH (09:53)
[2018-02-04] MEDS: ENOXAPARIN 60MG/0.6ML SYR SUBCUT SCH (09:54)
[2018-02-04 12:00] VITALS: BP 101/54
[2018-02-04 16:00] VITALS: BP 110/60
[2018-02-04 17:52] VITALS: BP 151/95
[2018-02-04] MEDS ORDERED: WARFARIN SODIUM 7.5MG TABLET PO SCH (18:00)
== END 2018-02-04 18:30 | DRG 871 ==
LOC: ER 21:20 → SUPCPDRO 23:00 → EDBEDREQTM 23:33 → EDBEDREQSVC 23:33 → EDBEDREQ 23:33 → CVICU 01-18 02:17 → 8WST 01-23 16:19
PROVIDERS: ADMIT Internal Medicine; ATTEND Internal Medicine
PROC: 5A1945Z Respiratory Ventilation, 24-96 Consecutive Hours (ICD-10-PCS; principal; 2018-01-17)
PROC: 0BH17EZ Insertion of Endotracheal Airway into Trachea, Via Natural or Artificial Opening (ICD-10-PCS; 2018-01-17)
PROC: 06HY33Z Insertion of Infusion Device into Lower Vein, Percutaneous Approach (ICD-10-PCS; 2018-01-17)
PROC: 05H633Z Insertion of Infusion Device into Left Subclavian Vein, Percutaneous Approach (ICD-10-PCS; 2018-01-19)
PROC: B547ZZA Ultrasonography of Left Subclavian Vein, Guidance (ICD-10-PCS; 2018-01-19)
PROC: 4A00X4Z Measurement of Central Nervous Electrical Activity, External Approach (ICD-10-PCS; 2018-01-20)
PROC: 0DH63UZ Insertion of Feeding Device into Stomach, Percutaneous Approach (ICD-10-PCS; 2018-01-25)
DX: A41.9 Sepsis, unspecified organism (principal); J96.01 Acute respiratory failure with hypoxia; J69.0 Pneumonitis due to inhalation of food and vomit; I21.4 Non-ST elevation (NSTEMI) myocardial infarction; E43 Unspecified severe protein-calorie malnutrition; J15.8 Pneumonia due to other specified bacteria; G92 Toxic encephalopathy; E72.20 Disorder of urea cycle metabolism, unspecified; R65.21 Severe sepsis with septic shock; D68.9 Coagulation defect, unspecified; N13.30 Unspecified hydronephrosis; M62.82 Rhabdomyolysis; I69.351 Hemiplegia and hemiparesis following cerebral infarction affecting right dominant side; E87.0 Hyperosmolality and hypernatremia; N17.9 Acute kidney failure, unspecified; N39.0 Urinary tract infection, site not specified; Z66 Do not resuscitate; D64.9 Anemia, unspecified; Z93.1 Gastrostomy status; C61 Malignant neoplasm of prostate; E83.39 Other disorders of phosphorus metabolism; E87.6 Hypokalemia; F03.90 Unspecified dementia, unspecified severity, without behavioral disturbance, psychotic disturbance, mood disturbance, and anxiety; G20 Parkinson's disease; I10 Essential (primary) hypertension; I35.0 Nonrheumatic aortic (valve) stenosis; I48.91 Unspecified atrial fibrillation; K29.70 Gastritis, unspecified, without bleeding; S30.812A Abrasion of penis, initial encounter; S30.810A Abrasion of lower back and pelvis, initial encounter; X58.XXXA Exposure to other specified factors, initial encounter; S30.813A Abrasion of scrotum and testes, initial encounter; S51.001A Unspecified open wound of right elbow, initial encounter; K44.9 Diaphragmatic hernia without obstruction or gangrene; Z51.5 Encounter for palliative care; R13.12 Dysphagia, oropharyngeal phase; Z95.2 Presence of prosthetic heart valve; Z79.01 Long term (current) use of anticoagulants; Z68.22 Body mass index [BMI] 22.0-22.9, adult; Z90.49 Acquired absence of other specified parts of digestive tract; Y93.89 Activity, other specified; Y92.89 Other specified places as the place of occurrence of the external cause; Y99.8 Other external cause status
CPT/HCPCS: 31500; 36415; 36556; 36569; 36600; 70450; 70551; 71045; 74176; 76700; 76770; 76937; 80048; 80053; 80061; 80076; 80202; 81003; 82140; 82248; 82270; 82375; 82550; 82553; 82607; 82746; 82805; 82962; 83036; 83540; 83550; 83605; 83735; 83880; 84100; 84134; 84439; 84443; 84478; 84481; 84484; 85025; 85027; 85610; 85730; 86705; 86709; 86803; 87040; 87070; 87077; 87086; 87186; 87340; 93005; 93306; 93970; 94002; 94003; 94640; 96365; 96367; 96375; 97110; 97162; 97166; 97530; 99291; A4216; A6261; C1725; C1769; C1892; C1893; C9113; J0330; J0690; J0696; J1200; J1650; J2250; J2543; J2765; J3010; J3370; J3430; J3480; J3490; J7030; J7040; J7050; J7060; J7608; J7620; L8514; P9041; Q9963; A4315